=== PATIENT | male | born 1965 | race Caucasian/White ===

== ENCOUNTER 2024-06-08 10:27 | Outpatient (AMB) | payer MEDICAID, SELFPAY ==
--- NOTE | 2024-06-08 10:33 | MHC.PC.OV ---
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 Intake Note: New patient visit Clinical Applications Specialist Required: No Accompanied by: Significant Other Allergies No Known Allergies Allergy (Verified 06/08/24 10:34) Medication List - Last Reviewed 06/08/24 by Narcisa Alfaro CMA acetaminophen 650 mg PO Q6H PRN acyclovir 800 mg PO BID alcohol swabs pad topical amlodipine 5 mg PO DAILY aspirin (Adult Aspirin Regimen) 81 mg PO DAILY B complex with C 20-folic acid 1 mg (Triphrocaps) 1 cap PO DAILY docusate sodium 100 mg PO BID ergocalciferol (vitamin D2) 1,250 mcg PO QWEEK ferrous sulfate 325 mg PO DAILY furosemide 20 mg PO DAILY glucose 4 grams PO Q15M PRN insulin aspart U-100 (Novolog FlexPen U-100 Insulin aspart) 1 sliding scale dose subcut USEASDIRECTD lansoprazole 30 mg PO DAILY magnesium aspart,citrate,oxide mg PO melatonin 6 mg PO BEDTIME metoprolol succinate ER 12.5 mg PO .Q 8 hours multivitamin (Daily Multi-Vitamin tablet) 1 tab PO DAILY mycophenolate mofetil 500 mg PO Q12H nystatin 5 mL PO QID omeprazole 20 mg PO DAILY oxycodone 5 mg PO Q8H PRN pen needle, diabetic As directed polyethylene glycol 3350(bulk) (Base B, Polyethylene Glycol 3350 granules) ea miscellaneous prednisone 10 mg PO DAILY nuvucfqzpx-ekzkoutu-sfrhsbyxvw 400-100-100 mg 1 tab PO QID sulfamethoxazole-trimethoprim 400-80 mg 1 tab PO 3XW tacrolimus 4 mg PO Q12H ursodiol 600 mg PO QID vitamin A 1 cap PO DAILY Tobacco use date assessed: 06/08/24 Dental Screening Dental Screen Date: 06/08/24 Did you have a dental visit in the last 12 months?: Yes Did you have a dental problem in the last 6 months where you did not have access to dental care?: No Was dental information given to patient?: Yes HPI 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 He is accompanied today by his significant other who is acting as his primary high school social studies tutor. He went to the hospital in March and was noted to have liver failure and kidney failure. He states he then left [facility] and went to [facility]. At [facility] he was able to get a liver transplant on 04/22/2024. He is following with the transplant team very closely and prior to this had not really had a PCP. 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 He did go to rehab for a couple of weeks and states that he does not need to follow with the addiction Medicine because he does not think about alcohol. [phone] Norma CV: bp today is 116/86. He is on norvasc 5 mg, metoprolol 12.5 mg tid. Blood pressures at home have been ranging a little higher but amlodipine was just recently added by transplant team. No reoccurrence of SVT so thought that possibly could come off the beta-leobardo at some point but right now is on this for management of his blood pressure. GI: From a GI standpoint he is improving in his liver tests are trending back to normal. The bilirubin is still a little elevated at 2.2. nephro: His last creatinine was 1.89 with a GFR of 41. While he was admitted he did need dialysis and at this point they are waiting 6 weeks before making a determination of whether he will be following with their renal transplant team as well. endo: steriod induced and currently on a sliding scale of NPH and NovoLog. Following with [facility] endocrinology. Colonoscopy: booked with [facility] PSA: He is unsure and we will get labs from [facility] that were just ordered. [facility] Surgical History (Updated 06/08/24 @ 12:51 by Samreen Hull PA-C) Liver transplanted Social History Housing: House Patient Tobacco Use Status: Former Tobacco user Years Smoked: [facility]-Cigarette/Vaping Use: Never Used Second Hand Smoke Exposure: No service: No Current occupational status: disabled Cognitive needs: No Hearing needs: No Vision needs: No Questionnaire AUDIT C Alcohol Use Questionnaire (AUDIT-C) 1. How often do you have a drink containing alcohol?: Never 3. How often do you have six or more drinks on one occasion?: Never Total Score: 0 Physical exam (Primary Care) Vital Signs: Last Vital Signs Pulse 97 06/08/24 10:47 Resp 14 06/08/24 10:47 BP 116/86 06/08/24 10:47 Pulse Ox 97 06/08/24 10:47 Oxygen Delivery Method Room Air 06/08/24 10:47 BMI result Body Mass Index 28.7 Tobacco/Smoking Status: Tobacco use Status Tobacco use date assessed 06/08/24 06/08/24 10:36 Patient Tobacco Use Status Former Tobacco user 06/08/24 10:41 e-Cigarette/Vaping Use Never Used 06/08/24 10:41 Const Orientation/consciousness: patient oriented x3 HENMT Ears: hearing grossly normal bilaterally Neck Thyroid: Thyroid normal Lymphatic: no lymphadenopathy noted Resp Auscultation: clear to auscultation bilaterally Cardio Rate: regular rate Rhythm: regular rhythm Heart sounds: S1 normal heart sound present and S2 normal heart sound present GI Inspection: Yes normal to inspection Palpation (GI): Soft to palpation and Other GI palpation findings present (nontender, no cva tenderness) Auscultation: normoactive bowel sounds Rectal Exam - Male: Yes deferred Skin General skin exam: no rashes or lesions noted Neuro General: patient oriented x3, gait normal and no focal motor deficits Coding Level of Care Code New Pt Level 4 (05464) Complex EM visit Add On G2211 Diagnoses HTN (hypertension) I10 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; T38.0X5A ESRD (end stage renal disease) N18.6 Liver transplanted Z94.4 History of alcohol abuse F10.11 H/O supraventricular tachycardia Z86.79 Assessment & Plan Assessment & Plan (1) HTN (hypertension): Code(s): I10 - Essential (primary) hypertension Category: Medical Plan: bp wnl continue current plan of norvasc 5 mg and metoprolol 12.5 mg TID (2) Steroid-induced diabetes: Code(s): 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 transplant team confirms they plan to make referral if needed (4) Liver transplanted: Code(s): Z94.4 - Liver transplant status Category: Surgical Plan: stable lfts trending to normal following next week with team (5) History of alcohol abuse: Code(s): F10.11 - Alcohol abuse, in remission Category: Medical Plan: reports sobriety does not want intervention from addiction medicine (6) H/O supraventricular tachycardia: Code(s): Z86.79 - Personal history of other diseases of the circulatory system Category: Medical Plan: records requested currently on metoprolol, denies sx
[2024-06-08 10:47] VITALS: BP 116/86; PULSE 97; RESP 14; O2SAT 97; BMI 28.7
== END 2024-06-08 11:27 | disposition home or self-care (01) ==
PROVIDERS: PCP Physician Assistant; Visit Provider Physician Assistant
DX: I12.0 Hypertensive chronic kidney disease with stage 5 chronic kidney disease or end stage renal disease (principal); E09.9 Drug or chemical induced diabetes mellitus without complications; N18.6 End stage renal disease; Z94.4 Liver transplant status; T38.0X5A Adverse effect of glucocorticoids and synthetic analogues, initial encounter; F10.11 Alcohol abuse, in remission; Z86.79 Personal history of other diseases of the circulatory system

== ENCOUNTER → 2024-06-08 10:27 | Outpatient (BNVA) | payer MEDICAID, SELFPAY | PROVIDERS: PCP Physician Assistant; Visit Provider Physician Assistant | DX: I12.0 Hypertensive chronic kidney disease with stage 5 chronic kidney disease or end stage renal disease (principal); N18.6 End stage renal disease; E09.9 Drug or chemical induced diabetes mellitus without complications; T38.0X5D Adverse effect of glucocorticoids and synthetic analogues, subsequent encounter; F10.11 Alcohol abuse, in remission; Z86.79 Personal history of other diseases of the circulatory system; Z94.4 Liver transplant status | CPT/HCPCS: 99202 ==

== ENCOUNTER 2024-07-13 07:50 | Outpatient (AMB) | payer OTHER, SELFPAY ==
--- OUTSIDE RECORDS SUMMARY | 2024-07-13 07:57 | XMS_ITS | Clinical Summary ---
Author Organization Former[facility] Address [address] [place] [address] Care Team Providers Care Middle [employer] Art Teacher Name Role Phone Pcp, No Primary Care Provider Unavailabl e Social History Tobacco Use Types Packs/Day Years Used Date Smoking Tobacco: Never Assessed Sex and Gender Information Value Date Recorded Sex Assigned at Male 03/21/2024 2:53 PM EST Legal Sex Male 3:56 PM EST Gender Identity Male 03/21/2024 2:53 PM EST Sexual Orientation Heterosexual (straight) 03/21 2:53 PM EST Plan of Treatment Upcoming Encounters Date Type Department Care Team (Late st Contact Info) Description 07/18/2024 4:30 PM EDT Office Visit [address] [id number] Eli Chaudhary, HEALTH DATA ADMINISTRATOR [address] [place] [address] Health Maintenance Due Date Last Done Comments Hepatitis C Virus Screening 1966 HIV Screening 1979 DTaP/Tdap/Td Vaccines (1 - Tdap) 1985 Hepatitis B Vaccines (1 of 3 - 19+ 3-dose series) 03/22 Colonoscopy 2011 Pneumococcal Vaccines 50+ (1 of 1 - PCV) 2016 Zoster (Shingles) Vaccine (1 of 2) 2016 Influenza Vaccine 10/21/2023 COVID-19 Vaccine ( - 2023-25 season) 2023 Care Teams Middle [employer] Art Teacher Relationship Specialty Start Date End Date Pcp, No PCP - General General Medicine 03/08/24
--- OUTSIDE RECORDS SUMMARY | 2024-07-13 07:57 | XMS_ITS ---
[facility] Name [facility] Organization Unknown Encounters Encounter Type Encounter Reason Primary Diagnosis Location Date Ambulatory [facility] 04/12/2024 Care Team Organization Name Specialty Phone Email Start Date End Da te [facility] PCP Stiff Leg Derrick Operator 05/31/2024 06/07/2024 [facility] NO PCP Primary Care 03/08/2024
--- NOTE | 2024-07-13 08:23 | A.OFFPC_ITS ---
Vital Signs 07/13/24 08:28 Height 6 ft 3 in Weight 258 lb 6 oz BMI 32.3 BP 138/86 Blood Pressure Location Rt brachial Position Sitting Respiration 14 Pulse 89 Pulse Source Pulse Oximeter Pulse Oximetry (%) 99 Oxygen Delivery Method Room Air Intake Visit Reasons: bp Intake Note: Blood pressure follow up Club Lounge Attendant Required: No Allergies No Known Allergies Allergy (Verified 07/13/24 08:24) Tobacco use date assessed: 07/13/24 Dental Screening Dental Screen Date: 06/08/24 HPI bp HPI Details Pt is a 59 y/o male who presents today for a follow up. He is new here. He is accompanied today by his significant other who is acting as his primary security compliance specialist. He went to the hospital in March and was noted to have alcohol-induced and hep C liver failure and kidney failure. He was transferred from [facility] to [facility]. At [facility] he was able to get a liver donor on 04/22/2024. He is following with the transplant team very closely. [phone] Ryan HARPER from transplant team July 27 going to [facility] for 4 appointments. Since our last visit he has gained 30 lbs. He just reduced prednisone and recently stopped lasix. He denies any cp or sob. He does get some ankle swelling since stopping lasix. It is better in the morning and worse by the end of the day. He states he felt less puffy while on lasix. CV: bp today is 138/86. BPs wnl at home. He is on norvasc 5 mg, metoprolol 12.5 mg tid. Blood pressures at home have been ranging a little higher but amlodipine was just recently added by transplant team. No reoccurrence of SVT since hospitalization so thought that possibly could come off the beta-leobardo at some point but right now is on this for management of his blood pressure. He was referred to cardiology. GI: From a GI standpoint he is improving in his liver tests are trending back to normal. The bilirubin is still a little elevated. nephro: His last creatinine was 1.89 with a GFR of 41. While he was admitted he did need dialysis and at this point they are waiting 2 more weeks before making a determination of whether he will be following with their renal transplant team as well. endo: steriod induced and currently on a sliding scale of NPH and NovoLog. He has not needed any meal time insulin in the last couple weeks. No hypoglycemia. Following with [facility] endocrinology. Colonoscopy: booked with [facility] PSA: He is unsure and we will get labs from [facility] that were just ordered. [facility] Surgical History (Updated 06/08/24 @ 12:51 by Samreen uHll PA-C) Liver transplanted Social History Housing: House Alcohol intake: former Patient Tobacco Use Status: Former Tobacco user Years Smoked: [facility]-Cigarette/Vaping Use: Never Used Second Hand Smoke Exposure: No Substance Use Type: Marijuana service: No Current occupational status: disabled Cognitive needs: No Hearing needs: No Vision needs: No Questionnaire AUDIT C Alcohol Use Questionnaire (AUDIT-C) 1. How often do you have a drink containing alcohol?: Never 3. How often do you have six or more drinks on one occasion?: Never Total Score: 0 Physical exam (Primary Care) Tobacco/Smoking Status: Tobacco use Status Tobacco use date assessed 06/08/24 06/08/24 10:36 Patient Tobacco Use Status Former Tobacco user 06/08/24 10:41 e-Cigarette/Vaping Use Never Used 06/08/24 10:41 Const Orientation/consciousness: patient oriented x3 HENMT Ears: hearing grossly normal bilaterally Neck Thyroid: Thyroid normal Lymphatic: no lymphadenopathy noted Resp Auscultation: clear to auscultation bilaterally Cardio Rate: regular rate Rhythm: regular rhythm Heart sounds: S1 normal heart sound present and S2 normal heart sound present GI Inspection: Yes normal to inspection Palpation (GI): Soft to palpation and Other GI palpation findings present (nontender, no cva tenderness) Auscultation: normoactive bowel sounds Skin General skin exam: no rashes or lesions noted Neuro General: patient oriented x3, gait normal and no focal motor deficits Extrem Other: +1 pitting edema of the ankles. No calf pain. 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; T38.0X5A HTN (hypertension) I10 Swelling of lower leg M79.89 Assessment & Plan Assessment & Plan (1) Liver transplanted: Code(s): Z94.4 - Liver transplant status Category: Surgical Plan: follows weekly with transplant team u/s booked 07/27 stable and overall feeling well (2) ESRD (end stage renal disease): Code(s): N18.6 - End stage renal disease Category: Medical Plan: seeing renal 07/27 again reports having labs wednesday stable per pt (3) Steroid-induced diabetes: Code(s): 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
[2024-07-13 08:28] VITALS: BP 138/86; PULSE 89; RESP 14; O2SAT 99; BMI 32.3
== END 2024-07-13 09:06 | disposition home or self-care (01) ==
LOC: HO.HMCFM 07:51
PROVIDERS: PCP Physician Assistant; Visit Provider Physician Assistant
DX: Z94.4 Liver transplant status (principal); N18.6 End stage renal disease; E09.9 Drug or chemical induced diabetes mellitus without complications; T38.0X5A Adverse effect of glucocorticoids and synthetic analogues, initial encounter; I12.0 Hypertensive chronic kidney disease with stage 5 chronic kidney disease or end stage renal disease; M79.89 Other specified soft tissue disorders

== ENCOUNTER → 2024-07-13 07:50 | Outpatient (BNVA) | payer OTHER, SELFPAY | PROVIDERS: PCP Physician Assistant; Visit Provider Physician Assistant | DX: I12.0 Hypertensive chronic kidney disease with stage 5 chronic kidney disease or end stage renal disease (principal); N18.6 End stage renal disease; E09.9 Drug or chemical induced diabetes mellitus without complications; T38.0X5A Adverse effect of glucocorticoids and synthetic analogues, initial encounter; M79.89 Other specified soft tissue disorders; Z94.4 Liver transplant status | CPT/HCPCS: 99212 ==

== ENCOUNTER 2024-10-12 09:03 | Outpatient (AMB) | payer OTHER, SELFPAY ==
--- NOTE | 2024-10-12 09:11 | A.OFFPC_ITS ---
Vital Signs 10/12/24 09:16 Height 6 ft 3 in Weight 256 lb BMI 32.0 BP 118/62 Blood Pressure Location Rt brachial Position Sitting Respiration 14 Pulse 75 Pulse Source Pulse Oximeter Temp 97.7 F Temp Source Temporal Artery Scan Pulse Oximetry (%) 97 Oxygen Delivery Method Room Air Intake Visit Reasons: bp check Intake Note: Bill presents in the office today for a blood pressure check. Allergies No Known Allergies Allergy (Verified 10/12/24 09:15) Tobacco use date assessed: 10/12/24 Dental Screening Dental Screen Date: 10/12/24 Did you have a dental visit in the last 12 months?: No Did you have a dental problem in the last 6 months where you did not have access to dental care?: No Was dental information given to patient?: Patient declined HPI HPI Comments History of Present Illness Details Pt is a 59 y/o male who presents today for a follow up. He is accompanied today by his significant other. He went to the hospital in March and was noted to have alcohol-induced and hep C liver failure and kidney failure. He was transferred from [facility] to [facility]. At [facility] he was able to get a liver donor on 04/22/2024. He is following with the transplant team very closely. Since seeing his PCP in June he was taken off Prednisone. He has been able to d/c insulin. Recently started on Zepbound by [facility] endocrinology. CV: bp today is normal. He is on norvasc 5 mg, metoprolol 12.5 mg tid. No reoccurrence of SVT since hospitalization. Sees cardiology locally. GI: From a GI standpoint he is doing well. Liver stent is being removed next month. Colonoscopy/EGD will be done at [facility]. Nephrology: Patient reports RFTs continue to gradually improve. While he was admitted he did need dialysis. He has blood work done at [facility] every other week. Patient says he is doing well mentally. He considers the transplant a miracle. ROS: Constitutional: No unexplained weight loss, fever, chills, fatigue or night sweats. Respiratory: No shortness of breath, cough or sputum production. Cardiovascular: No chest pain, chest pressure or chest discomfort. No palpitations. Chronic b/l LE edema. Gastrointestinal: No anorexia, nausea, vomiting or diarrhea. No abdominal pain or blood in stool. Neurologic: No headache, dizziness, syncope Hematologic/Lymphatics: No bleeding or bruising Skin: No rash Physical exam: Constitutional: Alert, in no distress. Neck: Supple, Full range of motion. No lymphadenopathy. Respiratory: Clear to auscultation. Cardiovascular: S1 S2 regular. No murmurs. Gastrointestinal: Abdomen soft, non-tender, non-distended Neurologic: No focal neurological deficits. Extremities: Warm and well perfused. 1+ b/l LE edema. Psychiatric: Normal mood and affect [facility] Surgical History Liver transplanted Social History (Updated 10/12/24 @ 09:16 by April Lainez MA) Housing: House Alcohol intake: former Patient Tobacco Use Status: Former Tobacco user Years Smoked: 2 years in high [employer] e-Cigarette/Vaping Use: Never Used Second Hand Smoke Exposure: No Substance Use Type: Marijuana service: No Current occupational status: disabled Cognitive needs: No Hearing needs: No Vision needs: No Questionnaire PHQ-9 Over the last 2 weeks, how often have you been bothered by any of the following problems? 1. Little interest or pleasure in doing things: several days 2. Feeling down, depressed, or hopeless: not at all 3. Trouble falling or staying asleep, or sleeping too much: several days 4. Feeling tired or having little energy: several days 5. Poor appetite or overeating: not at all 6. Feeling bad about yourself - or that you are a failure or have let yourself or your family down: not at all 7. Trouble concentrating on things, such as reading the newspaper or watching television: several days 8. Moving or speaking so slowly that other people could have noticed. Or the opposite - being so fidgety or restless that you have been moving around a lot more than usual: not at all 9. Thoughts that you would be better off or of hurting yourself in some way: not at all Total score: 4 Depression Screening Interpretation: Negative Depression Screening Done: Yes 15629 - PHQ-9 Billing: Yes Source: Developed by Drs. Girma Li, Madelaine Stanton, Freddy Cordova and colleagues, with an educational imani from [employer]. Thrive Questionnaire I am a: Patient What is your living situation today?: I have a steady place to live Within the past 12 months, did the food you bought not last and you didn't have the money to get more?: Never true Within the past 12 months, did you worry whether your food would run out before you got money to buy more?: Never true Do you have trouble paying for medicines?: No Do you have trouble getting transportation to medical appointments?: No Do you have trouble paying your heating and electricity bill?: No Do you have trouble taking care of your child, family member or friend?: No Do you have trouble with day-to-day activities such as bathing, preparing meals, shopping, managing finances, etc.?: No Are you currently unemployed and looking for a job?: No Are you interested in more education?: No Please select the resources that you would like help with: None Currently or been in a relationship where the following occur: No concerns reported THRIVE Score: 0 JUDY-7 AMB Questionnaire JUDY-7 Date JUDY - 7 assessed: 10/12/24 Feeling nervous, anxious, or on edge: 0 = Not at all Not being able to stop or control worryin = Not at all Worrying too much about different things: 0 = Not at all Trouble relaxin = Not at all Being so restless that it is hard to sit still: 0 = Not at all Becoming easily annoyed or irritable: 0 = Not at all Feeling afraid as if something awful might happen: 0 = Not at all Total JUDY-7 score (0-4 normal; 5-9 mild; 10-14 moderate; 15-21 severe): 0 Source: Developed by Drs. Girma Li, Madelaine Stanton, Freddy Cordova and colleagues, with an educational imani from [employer]. JUDY-7 Assessment Billing JUDY-7 Assessment Tool: JUDY-7 Assessment 25243 Physical exam (Primary Care) Vital Signs: Last Vital Signs Temp 97.7 F 10/12/24 09:16 Pulse 75 10/12/24 09:16 Resp 14 10/12/24 09:16 BP 118/62 10/12/24 09:16 Pulse Ox 97 10/12/24 09:16 Oxygen Delivery Method Room Air 10/12/24 09:16 BMI result Body Mass Index 32.0 Tobacco/Smoking Status: Tobacco use Status Tobacco use date assessed 10/12/24 10/12/24 09:22 Patient Tobacco Use Status Former Tobacco user 10/12/24 09:16 e-Cigarette/Vaping Use Never Used 10/12/24 09:16 PHQ-9: PHQ-9 Score PHQ-9: Total score 4 10/12/24 09:39 Depression Screening Interpretation: Negative Currently or been in a relationship where the following occur: No concerns reported Coding Level of Care Code Est Pt Level 4 (07021) Complex EM visit Add On G2211 Diagnoses Liver transplanted Z94.4 ESRD (end stage renal disease) N18.6 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 Stable. (2) ESRD (end stage renal disease): Code(s): N18.6 - End stage renal disease Category: Medical Plan: Reports renal labs improving. Request records. Avoid nephrotoxic meds. 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 Patient off insulin and on glp1. (4) HTN (hypertension): Code(s): I10 - Essential (primary) hypertension Category: Medical Plan: Controlled. Continue current regimen. Plan Follow up in 3 months with PCP
[2024-10-12 09:16] VITALS: BP 118/62; PULSE 75; RESP 14; TEMP 36.5; O2SAT 97; BMI 32.0
--- OUTSIDE RECORDS SUMMARY | 2024-10-12 09:30 | XMS_ITS ---
Author Name [facility] Organization Unknown Encounters Encounter Type Encounter Reason Primary Diagnosis Location Date Ambulatory [facility] 04/12/2024 Care Team Organization Name Specialty Phone Email Start Date End Da te [facility] PCP Slot Machine Department Floorperson 05/31/2024 06/07/2024 [facility] NO PCP Primary Care 03/08/2024
--- OUTSIDE RECORDS SUMMARY | 2024-10-12 09:30 | XMS_ITS | Clinical Summary ---
Author Organization [facility] Address [address] [place] [address] Care Team Providers Care Pipe Chipper Name Role Phone Pcp, No Primary Care Provider Unavailabl e Social History Tobacco Use Types Packs/Day Years Used Date Smoking Tobacco: Never Assessed Sex and Gender Information Value Date Recorded Sex Assigned at Male 03/21/2024 2:53 PM EST Legal Sex Male 3:56 PM EST Gender Identity Male 03/21/2024 2:53 PM EST Sexual Orientation Heterosexual (straight) 03/21 2:53 PM EST Plan of Treatment Health Maintenance Due Date Last Done Comments Hepatitis C Virus Screening 1965 HIV Screening 1979 DTaP/Tdap/Td Vaccines (1 - Tdap) 1985 Hepatitis B Vaccines (1 of 3 - 19+ 3-dose series) 03/22 Colonoscopy 2011 Pneumococcal Vaccines 50+ (1 of 1 - PCV) 2016 Zoster (Shingles) Vaccine (1 of 2) 2016 COVID-19 Vaccine ( - season) 2023 Influenza Vaccine 10/20/2024 Care Teams Pipe Chipper Relationship Specialty Start Date End Date Pcp, No PCP - General General Medicine 03/08/24
== END 2024-10-12 09:51 | disposition home or self-care (01) ==
LOC: HO.HMCFM 09:03
PROVIDERS: PCP Physician Assistant; Visit Provider Physician Assistant Medical
DX: Z94.4 Liver transplant status (principal); N18.6 End stage renal disease; E09.9 Drug or chemical induced diabetes mellitus without complications; T38.0X5A Adverse effect of glucocorticoids and synthetic analogues, initial encounter; I12.0 Hypertensive chronic kidney disease with stage 5 chronic kidney disease or end stage renal disease

== ENCOUNTER → 2024-10-12 09:03 | Outpatient (BNVA) | payer OTHER, SELFPAY | PROVIDERS: PCP Physician Assistant; Visit Provider Physician Assistant Medical | DX: I12.0 Hypertensive chronic kidney disease with stage 5 chronic kidney disease or end stage renal disease (principal); N18.6 End stage renal disease; E09.9 Drug or chemical induced diabetes mellitus without complications; T38.0X5A Adverse effect of glucocorticoids and synthetic analogues, initial encounter; Z94.4 Liver transplant status; Z13.31 Encounter for screening for depression; Z13.39 Encounter for screening examination for other mental health and behavioral disorders | CPT/HCPCS: 96127; 99212 ==

== ENCOUNTER 2024-10-16 12:28 | Outpatient (AMB) | payer OTHER, SELFPAY ==
[2024-10-16 12:59] VITALS: BP 124/72; PULSE 71; BMI 31.7
--- NOTE | 2024-10-16 12:59 | MHC.OFFVIS ---
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 Tractor Operator Swamp: Logging Tractor Operator Swamp Present Accompanied by: Sister Allergies No Known Allergies Allergy (Verified 10/12/24 09:15) Medication List - Last Reconciled 10/16/24 by Sachin Zafar MD acetaminophen 650 mg PO Q6H PRN alcohol swabs pad topical amlodipine 5 mg PO DAILY aspirin (Adult Aspirin Regimen) 81 mg PO DAILY B complex and C 20-folic acid 1 mg (Triphrocaps) 1 cap PO DAILY ergocalciferol (vitamin D2) 1,250 mcg PO QWEEK ferrous sulfate 325 mg PO DAILY furosemide 20 mg PO DAILY glucose 4 grams PO Q15M PRN magnesium aspart,citrate,oxide mg PO melatonin 6 mg PO BEDTIME metoprolol succinate ER 12.5 mg PO BID multivitamin (Daily Multi-Vitamin tablet) 1 tab PO DAILY mycophenolate mofetil 500 mg PO Q12H pen needle, diabetic As directed tacrolimus 4 mg PO Q12H tirzepatide (weight loss) (Zepbound) 2.5 mg subcut QWEEK ursodiol 600 mg PO QID vitamin A 1 cap PO DAILY HPI Comments Details: Bill was referred here for management of hypertension. Earlier this year he underwent a emergent liver transplant at [facility] for acute liver failure. Since then he has gradually recovered. Also was on dialysis at that point time and currently off dialysis. He has longstanding history of hypertension, ADHD, hepatitis-C as well as prior history of alcohol abuse. Patient also has history of diabetes which is currently being managed by [facility] and he is off insulin as per him. He has longstanding history of hypertension. He has prior history of ADHD and does not recall ever having any prior history of tachyarrhythmias. No other cardiac issues. He has never had a cardiac event including no myocardial infarction or congestive heart failure. [facility] Surgical History Liver transplanted Social History Housing: House Alcohol intake: former Patient Tobacco Use Status: Former Tobacco user Years Smoked: 2 years in [facility] e-Cigarette/Vaping Use: Never Used Second Hand Smoke Exposure: No Substance Use Type: Marijuana service: No Current occupational status: disabled Cognitive needs: No Hearing needs: No Vision needs: No Review of Systems Const Denies chills, Denies daytime sleepiness, Denies fatigue, Denies fever(s), Denies frequent falls, Denies poor appetite, Denies snoring, Denies stops breathing during sleep, Denies weakness, Denies weight gain and Denies weight loss Eyes Denies loss of vision ENT Denies dizziness and Denies hearing loss Card Denies chest pain, Denies claudication, Denies leg edema, Denies lightheadedness, Denies palpitations, Denies dyspnea, Denies dyspnea on exertion and Denies orthopnea Resp Denies cough, Denies excessive phlegm production, Denies dyspnea, Denies dyspnea on exertion, Denies snoring and Denies wheezing GI Denies abdominal pain, Denies hematochezia, Denies change in bowel habits, Denies nausea and Denies vomiting Denies dysuria and Denies urinary frequency Musc Denies arthralgias, Denies muscle weakness, Denies numbness and Denies other (frequent falls) Skin/Breast Denies nail changes and Denies rash Neuro Denies Abnormal speech present, Denies dizziness, Denies frequent falls, Denies loss of vision, Denies memory loss, Denies numbness and Denies weakness Psych Denies depression and Denies memory loss Endo Denies fatigue and Denies palpitations Darrick/Lymph Reports easy bruising and Reports other (anemia) Aller/Immun Denies wheezing Physical Exam Vital Signs: Last Vital Signs Pulse 71 10/16/24 12:59 BP 124/72 10/16/24 12:59 BMI result Body Mass Index 31.7 Const General: cooperative, comfortable, no acute distress, alert and awake Nutritional Appearance: obese Orientation/consciousness: patient oriented x3 Limitations: no limitations HEENT Head: Yes normocephalic and Yes atraumatic Neck Neck: Yes trachea midline, Yes supple and Yes no JVD Resp Effort & Inspection: normal respiratory effort Auscultation: clear to auscultation bilaterally Cardio Jugular venous distension: no JVD Palpation: normal PMI Rate: regular rate Rhythm: regular rhythm Heart sounds: S1 normal heart sound present, S2 normal heart sound present, no click, no gallops, no murmurs and no rubs GI Auscultation: normal bowel sounds Skin General skin exam: no rashes or lesions noted Neuro General: patient oriented x3 and no focal motor deficits Speech: No Abnormal speech present Extrem General: Yes no clubbing, cyanosis or edema and Yes other (Varicose vein on the left with chronic venous stasis changes) Psych Appearance: grossly normal Office Procedures EKG Details: EKG shows normal sinus rhythm with normal EKG 81500-[id number], Complete Assessment & Plan Assessment & Plan (1) HTN (hypertension): Code(s): I10 - Essential (primary) hypertension Category: Medical Plan: Patient with multiple risk factors for cardiac disease including hypertension diabetes which are both well controlled at this point time. Blood pressure for when he has not currently on amlodipine and metoprolol therapy with well optimized blood pressure. Will obtain an echocardiogram. No other testing is required as he is currently very function without having exertional symptoms. Advised to call me with any new cardiac symptoms. Will follow up if need be. (2) H/O supraventricular tachycardia: Code(s): Z86.79 - Personal history of other diseases of the circulatory system Category: Medical Plan: Patient with questionable history of supraventricular tachycardia. Does not recall this. He is currently on metoprolol therapy without any symptoms. No further workup is indicated. Continue metoprolol therapy as longest as tolerated. Avoidance of stimulants was discussed. Avoidance of alcohol was discussed. Will follow up in the clinic if need be. Thank you for allowing me to partake in his care Orders: Orders CA echo transthoracic complete Today I10 - Essential (primary) hypertension Coding Level of Care Code New Pt Level 3 (83861) Complex EM visit Add On G2211 Diagnoses HTN (hypertension) I10 H/O supraventricular tachycardia Z86.79 CPT Codes EKG - CPT: 60876-[id number], Complete ([id number])
--- OUTSIDE RECORDS SUMMARY | 2024-10-16 13:19 | XMS_ITS | Clinical Summary ---
Author Organization [facility] Address [address] [place] [address] Care Team Providers Care Astrochemist Name Role Phone Pcp, No Primary Care [...] season) 2023 Influenza Vaccine 10/20/2024 Care Teams Astrochemist Relationship Specialty Start Date End Date Pcp, No PCP - General General Medicine 03/08/24
== END 2024-10-16 14:53 | disposition home or self-care (01) ==
LOC: HO.HCS 12:29
PROVIDERS: PCP Physician Assistant; Visit Provider Internal Medicine Cardiovascular Disease
DX: I10 Essential (primary) hypertension (principal); Z86.79 Personal history of other diseases of the circulatory system
CPT/HCPCS: 93010; 99203; G2211

== ENCOUNTER → 2024-10-16 12:28 | Outpatient (BNVA) | payer OTHER, SELFPAY | PROVIDERS: PCP Physician Assistant; Visit Provider Internal Medicine Cardiovascular Disease | DX: I10 Essential (primary) hypertension (principal); Z86.79 Personal history of other diseases of the circulatory system | CPT/HCPCS: 93005; 99202 ==

== ENCOUNTER → 2024-11-14 14:52 | Outpatient (BNV) | payer OTHER, SELFPAY | PROVIDERS: Visit Provider Internal Medicine | DX: I35.8 Other nonrheumatic aortic valve disorders (principal); I34.81 Nonrheumatic mitral (valve) annulus calcification | CPT/HCPCS: 93306 ==

== ENCOUNTER → 2024-11-14 14:52 | Outpatient (REF) | payer OTHER, SELFPAY ==
--- NOTE | 2024-11-14 14:52 | CA_ITS ---
Transthoracic Echocardiogram Patient (Last, First, Middle): Bill Flores, Gender: M Date of : 1965 Age: 59 Procedure Date: 11/14/2024 Procedure Type: Transthoracic Echocardiogram Location: OP Height: 190. cm Weight: 110.23 kg BSA: 2.38 m2 Heart Rate: 68 bpm BP: 158 / 85 mmHg Public Weigher: CECE Referring MD: Sachin Zafar MD Symptoms: I10 - Essential (primary) hypertension Study Quality: Adequate ECG Rhythm: Sinus Conclusions: - The left ventricular systolic function is normal. The calculated ejection fraction is 61% by biplane method. - No obvious valvular pathology seen on this study. Findings Left Ventricle Normal left ventricular cavity size. There is mildly increased left ventricular wall thickness. The left ventricular systolic function is normal. The calculated ejection fraction is 61% by biplane method. There is no evidence of regional wall motion abnormalities. Diastolic function is normal for age. Right Ventricle Normal right ventricular cavity size and systolic function. Atria Both atria are normal in size. Aortic Valve There is a normal trileaflet aortic valve. There is mild calcification of the aortic valve. There is no aortic valve stenosis. There is no aortic valve regurgitation. Mitral Valve There is mild mitral annular calcification. There is trace mitral valve regurgitation. There is no mitral valve stenosis. Pulmonic Valve The pulmonic valve is likely normal. Tricuspid Valve There is trace tricuspid valve regurgitation. There is no evidence of pulmonary hypertension. Great Vessels Top normal ascending aortic size at 3.8 cm. Venous The inferior vena cava is normal in size and collapses greater than 50% with inspiration. Pericardium/Pleural There is no evidence of pericardial effusion. Prior Study Comparison No prior study available for comparison. Recommendations, Care & Conclusions No obvious valvular pathology seen on this study. Measurements 2D Linear Measurements IVSd: 1.09 0.6-0.9/0.6-1.0 cm LVIDd: 4.81 3.9-5.3/4.2-5.9 cm LVIDd Index: 2.02 2.4-3.2/2.2-3.1 cm/m2 LVIDs: 3.45 2.0-3.6 cm LVPWd: 1.11 0.7-1.1 cm LA Diam: 4.20 2.7-3.8/3.0-4.0 cm LAIDs Index: 1.76 1.5-2.3 cm/m2 LV Mass: 242.51 67-162/88-224 g LV Mass Index: 101.90 43-95/49-115 g/m2 LVOT Diam: 2.20 3.0+(-)1.3 cm 2D Systolic Function EF 4C: 62.10 >55% EF 2C: 59.90 >55% EF BiP: 60.90 >55% Mitral Valve MV Pk E: 0.79 MV PK A: 1.14 MV Decel Time: 250.00 E/A: 0.70 E'Lateral: 5.66 E'Medial: 5.44 E/E' Med: 14.50 E/E' Lat: 14.00 PHT: 73.00 MVA PHT: 3.01 Decel [place]: 3.16 Aortic Valve AoV Pk Quinten: 1.47 AoV Mn Quinten: 1.05 AoV VTI: 0.31 AoV Pk Grad: 9.00 Aov Mn Grad: 5.00 IRON Cont.VTI: 2.87 LVOT LVOT Pk Quinten: 1.07 LVOT Mn Quinten: 0.73 LVOT VTI: 0.23 LVOT Pk Grad: 5.00 LVOT Mn Grad: 3.00 LVOT Diam: 2.20 LVOT Area: 3.80 Diastolic Function MV Pk E: 0.79 MV Pk A: 1.14 E/A: 0.70 E'Medial: 5.44 E/E' Med: 14.50 E' Laterial: 5.66 E/E' Lat: 14.00 Right Ventricle TAPSE (mm): 25.90 TVS' Quinten: 12.60 Tricuspid Valve TR Pk Quinten: 2.35 TR Pk Grad: 22.00 Great Vessels Aorta Sinus of Valsalva: 3.80 2.0-3.5 cm Ao Asc: 3.80 2.1-3.4 cm Ao Arch: 2.70 Pulmonary Veins Pulm Vein S/D 1.60 Pulmonary Valve PV Pk Quinten: 0.96 Peak PV Grad: 4.00 Updated in Other Vendor System with Status of Final Mark Feliz MD electronically signed on 11/15/2024 3:37:01 PM with status of Final
--- OUTSIDE RECORDS SUMMARY | 2024-11-14 15:49 | XMS_ITS | Clinical Summary ---
Author Organization [facility] Address [address] [place] [address] Care Team Providers Care Human Service Worker Name Role Phone Pcp, No Primary Care [...] season) 2023 Influenza Vaccine 10/20/2024 Care Teams Human Service Worker Relationship Specialty Start Date End Date Pcp, No PCP - General General Medicine 03/08/24
== END ==
LOC: HO.CARD 14:52
PROVIDERS: Visit Provider Internal Medicine Cardiovascular Disease
DX: I10 Essential (primary) hypertension (principal)
CPT/HCPCS: 93306

== ENCOUNTER 2025-01-17 08:19 | Outpatient (AMB) | payer OTHER, SELFPAY ==
--- NOTE | 2025-01-17 08:22 | A.OFFPC_ITS ---
Vital Signs 01/17/25 08:29 Height 6 ft Weight 234 lb BMI 31.7 BP 136/74 Blood Pressure Location Rt brachial Position Sitting Respiration 14 Pulse 75 Pulse Source Pulse Oximeter Temp 97.9 F Temp Source Oral Pulse Oximetry (%) 96 Oxygen Delivery Method Room Air Intake Visit Reasons: follow up with PCP Samreen Hull Intake Note: Follow up. Had labs done yesterday at [facility]. Zoning Engineer Required: No Allergies No Known Allergies Allergy (Verified 01/17/25 08:26) Medication List - Last Reconciled 01/17/25 by Samreen Hull PA-C acetaminophen 650 mg PO Q6H PRN alcohol swabs pad topical amlodipine 5 mg PO DAILY aspirin (Adult Aspirin Regimen) 81 mg PO DAILY B complex and C 20-folic acid 1 mg (Triphrocaps) 1 cap PO DAILY dulaglutide (Trulicity) 1.5 mg subcut QWEEK ergocalciferol (vitamin D2) 1,250 mcg PO QWEEK ferrous sulfate 325 mg PO DAILY furosemide 20 mg PO DAILY glucose 4 grams PO Q15M PRN magnesium aspart,citrate,oxide mg PO melatonin 6 mg PO BEDTIME metoprolol succinate ER 12.5 mg PO BID multivitamin (Daily Multi-Vitamin tablet) 1 tab PO DAILY mycophenolate mofetil 500 mg PO Q12H pen needle, diabetic As directed tacrolimus 2 mg PO Q12H ursodiol 600 mg PO QID vitamin A 1 cap PO DAILY Tobacco use date assessed: 01/17/25 Dental Screening Dental Screen Date: 10/12/24 HPI follow up with PCP Samreen Hull HPI Details Pt is a 59 y/o male who presents today for a follow up. 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 He was transferred from [facility] to [facility]. At [facility] he was able to get a liver donor on 04/22/2024. He is following with the transplant team very closely. [phone] Ryan HARPER from transplant team CV: bp today is 136/74. BPs wnl at home. He is on norvasc 5 mg, metoprolol 12.5 mg bid, furosemide 20 mg daily. He has followed with cardiology for SVT and was advised to continue with metoprolol and to avoid stimulants and alcohol. GI: From a GI standpoint he is improving in his liver tests are trending back to normal. Had recent test to show that the hep C has cleared. He completed treatment. nephro: His last appointment with Nephrology he states it was great. He was told that his kidney function has rebounded and normalized. He is told that he will no longer have to follow up endo: He is currently on Trulicity 1.5 mg weekly. He has noticed significant appetite suppression with the Trulicity 1.5 mg and some nausea associated with this as well. He states for the 1st couple days of the injection he does not like how it makes him feel. His A1c today in the office is 5. Following with [facility] endocrinology. Uro: States that he would like to try something and see a urologist for erectile dysfunction. He is able to get an erection but has a hard time maintaining an erection. Derm: he wants to see derm for a skin check. Colonoscopy: booked with [facility] PSA: He is unsure and we will get labs from [facility] that were just ordered. [facility] Surgical History Liver transplanted Social History (Updated 01/17/25 @ 08:33 by Narcisa Alfaro CMA) Housing: House Alcohol intake: former Patient Tobacco Use Status: Former Tobacco user Years Smoked: 2 years in [facility] [place] e-Cigarette/Vaping Use: Never Used Second Hand Smoke Exposure: No Substance Use Type: Marijuana service: No Current occupational status: disabled Cognitive needs: No Hearing needs: No Vision needs: No Questionnaire PHQ-9 Over the last 2 weeks, how often have you been bothered by any of the following problems? 1. Little interest or pleasure in doing things: not at all 2. Feeling down, depressed, or hopeless: not at all 4. Feeling tired or having little energy: several days 5. Poor appetite or overeating: several days 6. Feeling bad about yourself - or that you are a failure or have let yourself or your family down: not at all 7. Trouble concentrating on things, such as reading the newspaper or watching television: not at all 8. Moving or speaking so slowly that other people could have noticed. Or the opposite - being so fidgety or restless that you have been moving around a lot more than usual: not at all Source: Developed by Drs. Girma Li, Madelaine Stanton, Freddy Cordova and colleagues, with an educational imani from [employer]. AUDIT C Alcohol Use Questionnaire (AUDIT-C) 1. How often do you have a drink containing alcohol?: Never 3. How often do you have six or more drinks on one occasion?: Never Total Score: 0 JUDY-7 AMB Questionnaire JUDY-7 Date JUDY - 7 assessed: 10/12/24 Source: Developed by Drs. Girma Li, Madelaine Stanton, Freddy Cordova and colleagues, with an educational imani from [employer]. Physical exam (Primary Care) Vital Signs: Last Vital Signs Temp 97.9 F 01/17/25 08:29 Pulse 75 01/17/25 08:29 Resp 14 01/17/25 08:29 BP 136/74 01/17/25 08:29 Pulse Ox 96 01/17/25 08:29 Oxygen Delivery Method Room Air 01/17/25 08:29 BMI result Body Mass Index 31.7 Tobacco/Smoking Status: Tobacco use Status Tobacco use date assessed 01/17/25 01/17/25 08:31 Patient Tobacco Use Status Former Tobacco user 01/17/25 08:33 e-Cigarette/Vaping Use Never Used 01/17/25 08:33 Const Orientation/consciousness: patient oriented x3 HENMT Ears: hearing grossly normal bilaterally Neck Thyroid: Thyroid normal Lymphatic: no lymphadenopathy noted Resp Auscultation: clear to auscultation bilaterally Cardio Rate: regular rate Rhythm: regular rhythm Heart sounds: S1 normal heart sound present and S2 normal heart sound present GI Inspection: Yes normal to inspection Palpation (GI): Soft to palpation and Other GI palpation findings present (nontender, no cva tenderness) Auscultation: normoactive bowel sounds Rectal Exam - Male: Yes deferred Skin General skin exam: no rashes or lesions noted Neuro General: patient oriented x3, gait normal and no focal motor deficits Results AMB Hemoglobin A1c AMB Hemoglobin A1c 5.0 % Last Edit by Narcisa Alfaro CMA on 01/17/25 08:59 Results Reviewed Results Reviewed: Laboratory Last Values Hgb A1c (Clinic) 5.0 % (4.0-6.0) 01/17/25 08:58 Coding Level of Care Code Est Pt Level 4 (15916) Complex EM visit Add On G2211 Diagnoses Liver transplanted Z94.4 ESRD (end stage renal disease) N18.6 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 Stable. (2) ESRD (end stage renal disease): Code(s): N18.6 - End stage renal disease Category: Medical Plan: Reports renal labs improving. Request records. 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 Not tolerating the higher dose of Trulicity. I will reduce his dosage to 0.75 mg weekly. Advised to follow with endocrinology (4) HTN (hypertension): Code(s): I10 - Essential (primary) hypertension Category: Medical Plan: Controlled. Continue current regimen. (5) Erectile dysfunction: Code(s): N52.9 - Male erectile dysfunction, unspecified Category: Medical Plan: Referral to urology. Advised patient that I need to see labs prior to sending in medication. Orders: Orders AMB Hemoglobin A1c Today E09.9 - Drug or chemical induced diabetes mellitus without complications, T38.0X5A - Adverse effect of glucocorticoids and synthetic analogues, initial encounter Referrals Urology Referral N52.9 - Male erectile dysfunction, unspecified Dermatology Referral Z12.83 - Encounter for screening for malignant neoplasm of skin Medications: New dulaglutide (Trulicity) 0.75 mg (0.5 mL) subcut QWEEK 2 mL 5RF
[2025-01-17 08:29] VITALS: BP 136/74; PULSE 75; RESP 14; TEMP 36.6; O2SAT 96; BMI 31.7
== END 2025-01-17 08:57 | disposition home or self-care (01) ==
LOC: HO.HMCFM 08:19
PROVIDERS: PCP Physician Assistant; Visit Provider Physician Assistant
DX: Z94.4 Liver transplant status (principal); N18.6 End stage renal disease; E09.9 Drug or chemical induced diabetes mellitus without complications; T38.0X5A Adverse effect of glucocorticoids and synthetic analogues, initial encounter; I12.0 Hypertensive chronic kidney disease with stage 5 chronic kidney disease or end stage renal disease; N52.9 Male erectile dysfunction, unspecified

== ENCOUNTER → 2025-01-17 08:19 | Outpatient (BNVA) | payer OTHER, SELFPAY | PROVIDERS: PCP Physician Assistant; Visit Provider Physician Assistant | DX: N18.6 End stage renal disease (principal); E09.9 Drug or chemical induced diabetes mellitus without complications; I10 Essential (primary) hypertension; N52.9 Male erectile dysfunction, unspecified; T38.0X5A Adverse effect of glucocorticoids and synthetic analogues, initial encounter; Z94.4 Liver transplant status; Z86.19 Personal history of other infectious and parasitic diseases; Z79.899 Other long term (current) drug therapy | CPT/HCPCS: 83036; 99212 ==